=== PATIENT | female | born 1980 | race Caucasian/White ===

== ENCOUNTER 2016-12-21 07:28 | Emergency (ER) | payer OTHER ==
[~2016-12-21] VITALS: Ht 165.1 cm; Wt 71.2 kg
[~2016-12-21 07:28] MED LIST: ENDOCET 5-3251 EACH PO; Fish Oil PO; Flintstones PO; Motrin PO
[2016-12-21 08:59] LABS: MCH 30.3 PG (29.0-34.0); MCHC 33.8 G/DL (30.0-36.0); MCV 89.6 FL (83-99); MEAN PLAT.VOLUME 10.3 uM^3 (9.5-12.4); PLATELET COUNT 188 K/uL (156-360); RBC DIS.WIDTH-CV 12.7 % (11.8-14.6); RBC DIS.WIDTH-SD 41.9 % (39-53); RED BLOOD COUNT 4.69 M/uL (3.80-5.20); WHITE BLOOD COUNT 2.8 K/uL (4.1-10.2)
[2016-12-21 09:10] LABS: D-DIMER ELISA < 150.00 ng/mLDDU (<230)
[2016-12-21 09:12] LABS: CHLORIDE 107 mEq/L (99-109); SODIUM 138 mEq/L (136-147)
[2016-12-21 09:13] LABS: MAGNESIUM 2.4 mg/dL (1.3-2.7)
[2016-12-21 09:14] LABS: GLUCOSE 87 mg/dL (70-99)
[2016-12-21 09:16] LABS: ANION GAP 9 MEQ/L (2-14)
[2016-12-21 09:18] LABS: GFR ESTIMATE (CALCULATED) > 59 mL/min/
[2016-12-21 09:19] LABS: UREA NITROGEN (BUN) 11 mg/dL (9-23)
[2016-12-21 09:20] LABS: TROP-I INTERPRETATION NEGATIVE; TROPONIN-I < 0.01 ng/mL (0.0-0.30)
[2016-12-21 09:26] LABS: QUANTITATIVE HCG < 4.0 MIU/ML
[2016-12-21 09:53] VITALS: BP 133/92
== END 2016-12-21 09:53 | disposition home or self-care (01) ==
LOC: EME 07:28 → EXP 07:28
PROVIDERS: Emergency Medicine
DX: J45.909 Unspecified asthma, uncomplicated (principal); F41.9 Anxiety disorder, unspecified; Z88.1 Allergy status to other antibiotic agents; Z88.5 Allergy status to narcotic agent
CPT/HCPCS: 80048; 82607; 82746; 83735; 84443; 84484; 84702; 85027; 85379; 93005; 99281; 99284